=== PATIENT | female | born 1955 | race Caucasian/White ===

== ENCOUNTER → 2017-12-09 12:35 | Outpatient (CLI) | payer OTHER, MEDICAID, SELFPAY ==
--- NOTE | 2017-12-09 12:39 | DI.RAD.S_ITS ---
PROCEDURE: XR SHOULDER RT MIN 2V INDICATIONS: adhesive capulitis TECHNIQUE: 3 views of the shoulder were acquired. COMPARISON: None. FINDINGS: Bones: Surgical anchors in humeral head. Lucency in the humeral head is likely caused by subchondral cyst formation. No fractures or dislocations. No suspicious bony lesions. Visualized ribs appear intact. Soft tissues: No suspicious soft tissue calcifications. IMPRESSION: Postsurgical changes and subchondral cyst formation. Dictated by: Chapincito Sterling M.D. on 12/09/2017 at 15:49 Approved by: Chapincito Sterling M.D. on 12/09/2017 at 15:52
--- NOTE | 2017-12-09 12:39 | DI.RAD.S_ITS ---
PROCEDURE: XR CERVICAL SPINE 4V OR 5V INDICATIONS: adhesive capulitis, chronic neck pain TECHNIQUE: 5 views of the cervical spine acquired. COMPARISON: [facility], , CERVICAL SPINE 2 OR 3 VIEWS, 05/06/2010, 14:13. FINDINGS: Bones: There is straightening of cervical curvature with loss of normal cervical lordosis. No fractures or dislocations to the C7 level. Oblique images demonstrate no bony foraminal stenoses. Mild degenerative disc disease is present at C5-C6. Soft tissues: No prevertebral soft tissue swelling. IMPRESSION: 1. Mild degenerative disc disease in cervical spine. 2. Straightening of cervical curvature with loss of normal cervical lordosis. Dictated by: Chapincito Sterling M.D. on 12/09/2017 at 15:47 Approved by: Chapincito Sterling M.D. on 12/09/2017 at 15:49
== END ==
PROVIDERS: PCP Internal Medicine; Visit Provider Internal Medicine
DX: M50.30 Other cervical disc degeneration, unspecified cervical region (principal); M75.01 Adhesive capsulitis of right shoulder; G89.29 Other chronic pain
CPT/HCPCS: 72050; 73030

== ENCOUNTER → 2018-01-03 06:49 | Outpatient (CLI) | payer OTHER, MEDICAID, SELFPAY ==
[2018-01-03 09:21] LABS: Free T3, Triiodothyronine Free 2.86 pg/mL (2.77-5.27)
[2018-01-03 09:35] LABS: Thyroid Stimulating Hormone 1.11 uIU/mL (0.47-4.68)
== END ==
PROVIDERS: PCP Internal Medicine; Visit Provider Internal Medicine
DX: E03.9 Hypothyroidism, unspecified (principal)
CPT/HCPCS: 36415; 84439; 84443; 84481

== ENCOUNTER → 2018-04-12 12:14 | Outpatient (CLI) | payer OTHER, MEDICAID, SELFPAY ==
--- NOTE | 2018-04-12 12:16 | DI.US.S_ITS ---
PROCEDURE: US PELVIC COMPLETE INDICATIONS: FULLNESS, PRESSURE TECHNIQUE: Real-time scanning was performed of the pelvic organs, with image documentation. Additional endovaginal scanning was necessary due to incomplete visualization of the adnexal and endometrial structures by transabdominal scanning. COMPARISON: [facility], , PELVIC COMPLETE, 06/03/2009, 12:18. FINDINGS: Transabdominal scanning: Limited scanning through the kidneys shows no hydronephrosis. No pathologic free abdominal or pelvic fluid. Endovaginal scanning: Uterus: Hysterectomy. Ovaries: Right ovary surgically absent. Normal left ovary measured 2.1 x 0.5 x 2.2 cm. Grossly normal appearance the kidneys bilaterally. IMPRESSION: Limited exam demonstrating no source for pelvic fullness. Dictated by: Migue JAFFE Interpreted: Bigg Gibbs MD on 04/12/2018 at 16:12 Approved by: Bigg Gibbs M.D. on 04/12/2018 at 17:19
== END ==
PROVIDERS: Family Provider Internal Medicine; PCP Internal Medicine; Visit Provider Internal Medicine
DX: R19.00 Intra-abdominal and pelvic swelling, mass and lump, unspecified site (principal); Z90.710 Acquired absence of both cervix and uterus; Z90.721 Acquired absence of ovaries, unilateral
CPT/HCPCS: 76830; 76856

== ENCOUNTER → 2018-12-13 07:56 | Outpatient (CLI) | payer MEDICARE, OTHER, SELFPAY ==
--- NOTE | 2018-12-13 08:00 | DI.ECHO.S_ITS ---
Echocardiogram Report + + :Name: ANNELISE SAWANT Study Date: 12/13/2018 Height: 65 in : :[facility] Exam Location: [facility] Weight: 134 lb : : Gender: Female BSA: 1.7 m2 : :: 1955 Age: 63 yrs BP: 110/65 mmHg: :Reason For Study: Murmur : :Ordering Physician: Chayito Browning Performed By: Sydney Page : + + Interpretation Summary The left ventricle is normal in size, wall thickness, and systolic function without any focal wall motion abnormalities. The ejection fraction is estimated to be 60-65%. The right ventricle is normal in size and function. There is discrete, calcified nodular thickening of the non- coronary cusp. No obvious aortic stenosis. There is trace aortic regurgitation. There is mild tricuspid regurgitation. The right ventricular systolic pressure is estimated to be at least 20 mmHg based on an estimated right atrial pressure of 3 mm Hg. Procedure: A two-dimensional transthoracic echocardiogram with color flow and Doppler was performed. The study quality was technically adequate. There is no prior echocardiogram noted for this patient. The patient was in sinus bradycardia with heart rates between 48-58 bpm during the exam. Left Ventricle: The left ventricle is normal in size, wall thickness, and systolic function without any focal wall motion abnormalities. There is no thrombus. The ejection fraction is estimated to be 60-65%. There are no focal wall motion abnormalities. Diastolic parameters suggest probable normal left ventricular diastolic function and normal filling pressures. Right Ventricle: The right ventricle is normal in size and function. Atria: The left atrium is mildly dilated. The right atrium is mildly dilated. There is no Doppler evidence for an interatrial shunt. Mitral Valve: The mitral valve is normal in structure and function. There is trace mitral regurgitation. Aortic Valve: The aortic valve is trileaflet. There is discrete nodular thickening of the non- coronary cusp. There is no aortic valve stenosis. There is trace aortic regurgitation. Tricuspid Valve: The tricuspid valve is normal. There is mild tricuspid regurgitation. The right ventricular systolic pressure is estimated to be at least 20 mmHg based on an estimated right atrial pressure of 3 mm Hg. Pulmonic Valve: The pulmonic valve is not well seen, but is grossly normal. There is trace pulmonic regurgitation. Great Vessels: The aortic root is normal size. The ascending aorta is at the upper limits of normal in size. The aortic arch is normal in size. The pulmonary is not well visualized. The IVC is of normal diameter and collapses greater than 50% with a sniff. This suggests a low right atrial pressure of 3 mm Hg. Pericardium/ Pleura There is a trivial pericardial effusion noted. There is an anterior echo-free space consistent with a fat pad. There are no echocardiographic or Doppler indications for cardiac tamponade. There is no pleural effusion. MMode/2D Measurements & Calculations EPSS: 0.40 cm LVOT diam: 2.0 cm Ao root diam: 3.1 cm asc Aorta Diam: 3.4 cm Ao Arch Diam (Prox Trans): 2.4 cm LA A2 area: 23.3 cm2 RA long axis: 5.3 cm LA A4 area: 19.8 cm2 RA area: 19.7 cm2 LA length (vol): 5.7 cm RA vol: 62.5 ml LA vol: 68.7 ml RA : 37.4 ml/m2 LA vol index: 41.2 ml/m2 IVC diam: 2.1 cm RVD1 (basal): 3.2 cm TAPSE: 2.4 cm Doppler Measurements & Calculations Ao V2 max: 134.8 cm/sec LVOT Max Toño: 124.2 cm/sec Ao V2 mean: 93.2 cm/sec LV V1 max P.2 mmHg Ao max P.3 mmHg LV V1 VTI: 28.3 cm Ao mean P.9 mmHg KAYLEIGH(I,D): 2.7 cm2 Ao V2 VTI: 31.5 cm KAYLEIGH(V,D): 2.8 cm2 sev ratio: 0.90 KAYLEIGH indexed to BSA (cm^2/m^2): 1.6 MV E max toño: 104.5 cm/sec TR max toño: 206.1 cm/sec MV A max toño: 69.3 cm/sec TR max P.0 mmHg MV E/A: 1.5 PA V2 max: 79.2 cm/sec Med Peak E' Toño: 7.9 cm/sec PA V2 mean: 53.9 cm/sec E/E' med: 13.1 PA mean P.3 mmHg Lat Peak E' Toño: 10.3 cm/sec PA Accel Time: 0.14 sec E/E' lat: 10.1 E/e' average: 11.6 MV dec time: 0.20 sec MV P1/2t: 56.7 msec MV P1/2t max toño: 105.2 cm/sec SV(LVOT): 85.5 ml MVA(P1/2t): 3.9 cm2 _ Reading Physician:SONIA
== END ==
PROVIDERS: PCP Internal Medicine; Visit Provider Internal Medicine
DX: I07.1 Rheumatic tricuspid insufficiency (principal); R01.1 Cardiac murmur, unspecified
CPT/HCPCS: 93306

== ENCOUNTER → 2019-05-16 09:44 | Outpatient (CLI) | payer MEDICARE, OTHER, SELFPAY | PROVIDERS: PCP Internal Medicine; Visit Provider Internal Medicine | DX: Z13.820 Encounter for screening for osteoporosis (principal); M85.851 Other specified disorders of bone density and structure, right thigh; Z78.0 Asymptomatic menopausal state; Z87.891 Personal history of nicotine dependence | CPT/HCPCS: 77080 ==

== ENCOUNTER → 2021-09-16 15:19 | Outpatient (CLI) | payer MEDICARE, SELFPAY ==
--- NOTE | 2021-09-16 15:29 | DI.RAD.S_ITS ---
PROCEDURE: XR KNEE RT 3V INDICATIONS: RIGHT KNEE PAIN TECHNIQUE: 3 views of the knee were acquired. COMPARISON: [facility], , KNEE 3V RIGHT, 12/22/2013, 9:24. FINDINGS: Bones: No fractures or dislocations. No suspicious bony lesions. There is an enthesophyte of the superior patella at the quadriceps insertion. Mild degenerative changes of the medial joint space. Soft tissues: No joint effusion. No suspicious soft tissue calcifications. IMPRESSION: Mild degenerative changes, otherwise no definite radiographic abnormality. If pain persists with conservative management consider cross-sectional imaging with MRI or CT. Dictated by: Alhaji Vega M.D. on 09/16/2021 at 16:21 Approved by: Alhaji Vega M.D. on 09/16/2021 at 16:22
== END ==
PROVIDERS: PCP Internal Medicine; Referring Provider Internal Medicine; Visit Provider Internal Medicine
DX: M25.561 Pain in right knee (principal)
CPT/HCPCS: 73562

== ENCOUNTER → 2021-11-20 16:09 | Outpatient (CLI) | payer MEDICARE, SELFPAY ==
--- NOTE | 2021-11-20 | DI.MRI.S_ITS ---
PROCEDURE: MR KNEE RT WO CON INDICATIONS: RIGHT KNEE PAIN TECHNIQUE: Noncontrast sagittal PD fast spin echo and T2 fast spin echo with fat saturation, sagittal 3-D FLASH with fat saturation; coronal T1 spin echo and PD fast spin echo with fat saturation, and axial PD fast spin echo with fat saturation through the knee. COMPARISON: [facility], CR, XR KNEE RT 3V, 09/16/2021, 15:26. FINDINGS: Image quality: Excellent. Menisci: There is complex tear of the posterior horn of the medial meniscus. The free edge of the body and posterior horn of the medial meniscus is blunted, consistent with tear. There is intrasubstance degeneration of the medial aspect of the posterior horn of the lateral meniscus. The meniscal root ligaments appear intact. Cruciate ligaments: The anterior and posterior cruciate ligaments appear intact. Medial structures: There is grade 2 sprain of the deep layer of the medial collateral ligament. The posterior oblique ligament, semimembranosus tendon insertions, oblique popliteal ligament, and meniscocapsular junction appear intact. Visualized portions of the pes anserinus tendons appear normal. No abnormal bursal fluid. Lateral structures: The lateral collateral ligament, long and short heads of the biceps femoris tendon appear intact. The popliteus tendon appears normal; the popliteofibular ligament appears intact. The posterosuperior and anteroinferior popliteomeniscal fascicles appear intact. The arcuate and fabellofibular ligaments appear intact, on either side of the lateral inferior geniculate artery. Iliotibial band appears normal. Anterior structures: The quadriceps and patellar tendons appear intact. Patellar alignment is normal. No femoral trochlear dysplasia or ventral trochlear prominence. No edema in the infrapatellar fat pad. Bones and cartilage: No fractures. There is tricompartmental cartilage thinning and fibrillation. Mild edema in the medial femoral condyle and medial tibial plateau consistent with contusions. Joint space: There is moderate knee joint effusion. Trace Cuevas's cyst. Normal appearing synovial plicae are incidentally noted. IMPRESSION: 1. Complex tear of the posterior horn of the medial meniscus. There is also tear of the free edge of the body and posterior horn of the medial meniscus. 2. Intrasubstance degeneration the posterior horn of the lateral meniscus. 3. Grade 2 MCL sprain. 3. Tricompartmental cartilage thinning and fibrillation. 4. Moderate knee joint effusion. 5. Mild bone contusions in the medial femoral condyle and medial tibial plateau. Dictated by: Chapincito Sterling M.D. on 11/21/2021 at 8:33 Approved by: Chapincito Sterling M.D. on 11/21/2021 at 8:43
== END ==
PROVIDERS: PCP Internal Medicine; Referring Provider Internal Medicine; Visit Provider Internal Medicine
DX: S83.411A Sprain of medial collateral ligament of right knee, initial encounter (principal); S83.231A Complex tear of medial meniscus, current injury, right knee, initial encounter; S80.01XA Contusion of right knee, initial encounter; M25.561 Pain in right knee; M25.461 Effusion, right knee
CPT/HCPCS: 73721

== ENCOUNTER → 2022-07-15 12:13 | Outpatient (CLI) | payer MEDICARE, SELFPAY ==
--- NOTE | 2022-07-15 | DI.RAD.S_ITS ---
PROCEDURE: XR DEXA AXIAL SKELETON INDICATIONS: osteoporosis screening COMPARISON: [facility], CR, XR DEXA AXIAL SKELETON, 05/16/2019, 10:16. FINDINGS: This blank DEXA report has been sent in error by the PACS system. The correct and complete report will be forthcoming in 1-2 days. Thank you for your patience and understanding. Dictated by: Arnel Arevalo M.D. on 07/15/2022 at 13:15 Approved by: Arnel Arevalo M.D. on 07/15/2022 at 13:15
== END ==
PROVIDERS: PCP Internal Medicine; Referring Provider Internal Medicine; Visit Provider Internal Medicine
DX: Z78.0 Asymptomatic menopausal state (principal); Z13.820 Encounter for screening for osteoporosis; M85.852 Other specified disorders of bone density and structure, left thigh; Z90.710 Acquired absence of both cervix and uterus
CPT/HCPCS: 77080